=== PATIENT | male | born 1935 | race Caucasian/White ===

== ENCOUNTER → 2016-10-10 | Day surgery (SDC) | payer OTHER, BC ==
[2016-09-25 11:09] VITALS: BMI 34.0
[~2016-10-10] VITALS: Ht 170.2 cm; Wt 100.0 kg
[~2016-10-10] MED LIST: ASPI81TA28 PO; CALC600T9 PO; DOXA2TAB PO; GARL400T4 PO; LIDOCAINE HCL 2% 2 ML VIAL (20MG/ML) ONE; MULT-506 PO; NIAC500T7 PO; OMEG10007 PO; PROPOFOL IV EMULSION 10 MG/ML 20 ML VIAL IV ONE; SIMV20TA2 PO; SOTA120T16 PO; TIMO0.2534 OPB; [UNRECOGNIZED DRUG - CODE] PO
[2016-10-10 12:42] VITALS: Ht 170.2 cm; Wt 100.0 kg
[2016-10-10 12:54] VITALS: TEMP 36.9
--- NOTE | 2016-10-10 13:05 | Endo History and Physical ---
History & Physical Date of Service: Oct 10, 2016. Chief Complaint: HX OF COLON CA Referring Physician: DR. VIRGINIA VICTOR History of Present Illness For colonoscopy Past Medical History Atrial Fibrillation, Cancer, High Cholesterol, Hypertension Past Surgical History Hx Cardiac Surgery: Yes (CARDIOVERSION) Hx Internal Defibrillator: No Hx Pacemaker: No Hx Abdominal Surgery: Yes (HERNIA REPAIR) Hx of Implantable Prosthesis: No Hx Post-Op Nausea and Vomiting: No Hx Cancer Surgery: Yes (PARTIAL COLON RESECTION, MELANOMA REMOVALS) Hx Thoracic Surgery: No Hx Orthopedic: No Hx Urinary Tract Surgery: Yes (PROSTATE BIOPSY X2) Family History None Social History Smoking Status: Never Smoker Hx Substance Use: No Hx Alcohol Use: Yes (1 BEER/DAY) Allergies Coded Allergies: No Known Allergies (Verified , 09/25/16) Current Medications Reported Home Medications Medications Dose Route/Sig Max Daily Dose Days Date Category Cardura (Doxazosin Mesylate) 2 Mg Tab 1 Mg PO HS 09/25/16 Reported Niacin (Niacinamide) 500 Mg Tab 500 Mg PO QAM 04/20/15 Reported Garlic (Garlic-Calcium) 1 Tab Tab 1 Tab PO BID 04/20/15 Reported Multivitamin (Multivitamins) Tab 1 Tab PO QAM 04/20/15 Reported Calcium + D (Calcium Carbonate-Vitamin D) 1 Tab Tab 1 Tab PO BID 04/20/15 Reported [place]-3 (Fish Oil) 1 Ea Cap 1 Cap PO BID 04/20/15 Reported Aspirin Ec (Aspirin) 81 Mg Tab 81 Mg PO QAM 04/20/15 Reported Timoptic 0.5% Oph (Timolol Maleate) Soln 1 Drops OPB QAM 04/20/15 Reported Betapace (Sotalol Hcl) 120 Mg Tab 120 Mg PO BID 03/08/12 Reported Atacand Hct 16MG/12.5MG * (Candesartan Cilexetil/HCTZ) Tab 0.5 Tablet PO QAM 03/08/12 Reported Zocor (Simvastatin) 20 Mg Tab 20 Mg PO HS 02/04/11 Reported Vital Signs Weight (Kilograms): 100.00 Height (Feet): 5 Height (Inches): 7 Date Time Temp Pulse Resp B/P Pulse Ox O2 Delivery O2 Flow Rate FiO2 10/10/16 12:54 36.9 66 18 131/87 95 Room Air Physical Exam General Appearance: WD/WN Respiratory/Chest: Respiratory effort: no dyspnea Cardiovascular: Heart Auscultation: RRR Abdomen: Bowel Sounds: pertinent finding (scar) Inspection & Palpation: soft Assessment and Plan Hx colon cancer for colonoscopy
--- NOTE | 2016-10-10 13:25 | Discharge Instructions ---
Endoscopy Patient Instructions Date / Procedure(s) Performed Oct 10, 2016. Colonoscopy Allergy Information Coded Allergies: No Known Allergies (Verified , 09/25/16) Discharge Date / Findings Oct 10, 2016. Diverticulosis, hemorrhoids Medication Instructions Stopped Medication(s): vitamins and aspirin Restart Stopped Medication(s): resume meds Reported Home Medications Medications Dose Route/Sig Max Daily Dose Days Date Category Cardura (Doxazosin Mesylate) 2 Mg Tab 1 Mg PO HS 09/25/16 Reported Niacin (Niacinamide) 500 Mg Tab 500 Mg PO QAM 04/20/15 Reported Garlic (Garlic-Calcium) 1 Tab Tab 1 Tab PO BID 04/20/15 Reported Multivitamin (Multivitamins) Tab 1 Tab PO QAM 04/20/15 Reported Calcium + D (Calcium Carbonate-Vitamin D) 1 Tab Tab 1 Tab PO BID 04/20/15 Reported M[place]-3 (Fish Oil) 1 Ea Cap 1 Cap PO BID 04/20/15 Reported Aspirin Ec (Aspirin) 81 Mg Tab 81 Mg PO QAM 04/20/15 Reported Timoptic 0.5% Oph (Timolol Maleate) Soln 1 Drops OPB QAM 04/20/15 Reported Betapace (Sotalol Hcl) 120 Mg Tab 120 Mg PO BID 03/08/12 Reported Atacand Hct 16MG/12.5MG * (Candesartan Cilexetil/HCTZ) Tab 0.5 Tablet PO QAM 03/08/12 Reported Zocor (Simvastatin) 20 Mg Tab 20 Mg PO HS 02/04/11 Reported Provider Instructions Activity Restrictions - No exercising or heavy lifting for 24 hours. - Do not drink alcohol the day of the procedure. - Do not drive a car or operate machinery until the day after the procedure. - Do not make any important decisions or sign important papers in 24 hours after the procedure. Following Day: - Return to full activity which may include returning to work/school. Diet Start your diet with liquids and light foods (jello, soup, juice, toast). Then eat your usual diet if not nauseated. Treatment For Common After Affects For mild abdominal pain, bloating, or excessive gas: - Rest - Eat lightly - Lie on right side Follow-Up Information Follow-up with DR. VIRGINIA VICTOR as scheduled Anesthesia Information What You Should Know You have had a procedure that required some medicine to reduce anxiety and discomfort. This treatment is called moderate sedation. After receiving the treatment, you may be sleepy, but you will be able to breathe on your own. The effects of the treatment may last for several hours. Follow these instructions along with Activity/Diet recommendations noted above: * Do NOT do anything where dizziness or clumsiness would be dangerous. * Rest quietly at home today, then you can be up and about tomorrow. * Have a responsible person stay with you the rest of today. * You may have had an I.V. today. If so, you may take the dressing off later today. Recommendations Call your doctor if: * Trouble breathing * Continuous vomiting for more than 24 hours * Temperature above 101 degrees * Severe abdominal pain or bloating * Pain not relieved by pain medicine ordered * There is increased drainage or redness from any incision * A large amount of rectal bleeding greater than 2-3 tablespoons. (If you had a polyp/s removed or have hemorrhoids, a small amount of blood - from the rectum is to be expected.) * You have any unanswered questions or concerns. IN THE EVENT OF A SERIOUS EMERGENCY, GO TO THE NEAREST EMERGENCY ROOM Your discharge instructions were prepared by provider Ming Grullon. Patient Instructions Signature Page Roderick Ramirez Patient (or Guardian) Signature/Date: I have read and understand the instructions given to me by my caregivers. Caregiver/RN/Doctor Signature/Date: The above-named patient and/or guardian has received patient instructions on this date. + Original Patient Signature Page (only) stays with chart. Please make copy for patient.
--- NOTE | 2016-10-10 13:28 | GI REPORT ---
Procedure Date: 10/10/2016 1:07 PM Procedure: Colonoscopy Indications: Personal history of malignant neoplasm of the colon Medicines: Propofol total dose 150 mg IV, Lidocaine 40 mg IV Complications: No immediate complications. Estimated Blood Loss: Estimated blood loss: none. Procedure: Pre-Anesthesia Assessment: - Prior to the procedure, a History and Physical was performed, and patient medications, allergies and sensitivities were reviewed. The patient's tolerance of previous anesthesia was reviewed. - The risks and benefits of the procedure and the sedation options and risks were discussed with the patient. All questions were answered and informed consent was obtained. After I obtained informed consent, the scope was passed under direct vision. Throughout the procedure, the patient's blood pressure, pulse, and oxygen saturations were monitored continuously. The On-site loaner was introduced through the anus and advanced to the cecum, identified by appendiceal orifice and ileocecal valve. The colonoscopy was performed without difficulty. The patient tolerated the procedure well. The quality of the bowel preparation was good. Findings: There was evidence of a prior end-to-end colo-colonic anastomosis in the sigmoid colon. This was patent and was characterized by healthy appearing mucosa. The anastomosis was traversed. Non-bleeding internal hemorrhoids were found during endoscopy. The hemorrhoids were moderate. A few diverticula were found in the sigmoid colon. Impression: - Patent end-to-end colo-colonic anastomosis, characterized by healthy appearing mucosa. - Non-bleeding internal hemorrhoids. - Diverticulosis in the sigmoid colon. - No specimens collected. Recommendation: - Discharge patient to home (ambulatory). - Continue present medications. - Repeat colonoscopy in 5 years for surveillance. - Return to primary care physician PRN. Ming Grullon M.D. Ming Grullon MD 10/10/2016 1:28:32 PM This report has been signed electronically. Note Initiated On: 10/10/2016 1:07 PM I attest to the content of the Intraoperative Record and orders documented therein, exceptions below
[2016-10-10 14:00] VITALS: BP 165/89; PULSE 54; O2SAT 94
--- NOTE | 2016-10-10 14:13 | Anesthesiology Progress Note ---
Anesthesia Post Op Note Date & Time Oct 10, 2016 at 14:13 Vital Signs Pain Intensity: 0 Vital Signs Past 12 Hours Date Time Temp Pulse Resp B/P Pulse Ox O2 Delivery O2 Flow Rate FiO2 10/10/16 14:00 54 20 165/89 94 Room Air 10/10/16 13:45 58 20 153/85 96 Room Air 10/10/16 13:30 65 20 116/63 96 Room Air 10/10/16 12:54 36.9 66 18 131/87 95 Room Air Notes Mental Status: alert / awake / arousable, participated in evaluation Pt Amnestic to Procedure: Yes Nausea / Vomiting: adequately controlled Pain: adequately controlled Airway Patency, RR, SpO2: stable & adequate BP & HR: stable & adequate Hydration State: stable & adequate Anesthetic Complications: no major complications apparent
== END | disposition home or self-care (01) ==
LOC: C.GI 12:24
PROVIDERS: ATTEND Internal Medicine Gastroenterology
DX: Z85.038 Personal history of other malignant neoplasm of large intestine (principal); K57.30 Diverticulosis of large intestine without perforation or abscess without bleeding; K64.8 Other hemorrhoids; I48.91 Unspecified atrial fibrillation; Z98.0 Intestinal bypass and anastomosis status; I10 Essential (primary) hypertension; E78.00 Pure hypercholesterolemia, unspecified

== ENCOUNTER → 2017-10-06 | Outpatient (CLI) | payer OTHER, BC ==
[~2017-10-06] MED LIST changes: -LIDOCAINE HCL 2% 2 ML VIAL (20MG/ML) ONE; -PROPOFOL IV EMULSION 10 MG/ML 20 ML VIAL IV ONE
[2017-10-06 18:40] LABS: BLOOD UREA NITROGEN 21 mg/dl (7-18); CALCIUM 9.4 mg/dl (8.5-10.1); CARBON DIOXIDE 30 mmol/L (21-32); CREATININE 0.95 mg/dl (0.60-1.40); GLUCOSE 92 mg/dl (70-99); POTASSIUM 4.4 mmol/L (3.5-5.1); SODIUM 136 mmol/L (136-145)
[2017-10-07 06:40] LABS: HEMOGLOBIN A1C 6.1 % (4.5-5.6)
== END | disposition home or self-care (01) ==
LOC: C.LABPBG 11:23
PROVIDERS: ATTEND Urology
DX: E66.8 Other obesity (principal); E11.9 Type 2 diabetes mellitus without complications; R00.1 Bradycardia, unspecified; N40.1 Benign prostatic hyperplasia with lower urinary tract symptoms

== ENCOUNTER → 2017-10-29 | Outpatient (CLI) | payer OTHER, BC ==
[~2017-10-29] MED LIST changes: +GADAVIST IV PRN
--- NOTE | 2017-10-29 15:29 | DIAGNOSTIC IMAGING REPORT ---
PROSTATE MRI COMBO CLINICAL HISTORY: 82 years-old Male presenting with R97.20 Elevated prostate specific antigen (PSA)10/06/17 PSA (19.60. PSA ng/mL. TECHNIQUE: Multisequence, multiplanar MR imaging of the prostate was performed before and after the administration of intravenous contrast. Additional postprocessing was performed on a separate [employer] workstation by the radiologist for 3-D volumetric segmentation of the prostate and contouring of region(s) of interest (COY) for targeting. IV contrast: 10 cc intravenous Gadavist COMPARISON: None. FINDINGS: Prostate: The prostate measures 6.3 x 5.0 x 5.8 cm cm (DynaCAD prostate boundary segmentation volume 89 mL). Moderate changes of benign prostatic hyperplasia. Precontrast T1 weighted imaging demonstrates no evidence of intrinsic T1 hyperintensity to suggest hemorrhage. Suspicious lesion(s) described below: Lesion (DynaCAD COY) 1: Location: Left posterolateral peripheral zone at the mid gland. The lesion does not extend across the midline. Size: 18 mm (as measured on ADC for PZ lesion and T2WI for TZ lesion) T2W: 4. Circumscribed, homogeneous moderately hypointense lesion. The lesion has an extended interface with the overlying capsule, which increases the risk of microinvasion. No definite extraprostatic extension, seminal vesicles invasion, or neurovascular bundle involvement. DWI: 5. Focal markedly hypointense on ADC and markedly hyperintense on high b-value DWI. DCE: Positive. Focal enhancement corresponding to a suspicious finding, earlier or contemporaneous with adjacent normal tissue. PI-RADS: 5. Clinically significant cancer is highly likely to present. There is a second nodule located on the right in the posterior lateral peripheral zone at the mid gland level. This nodule measures 2 mm. The nodule is circumscribed and not visualized on T2-weighted images. The lesion demonstrates hypointensity on diffusion-weighted imaging and has a high B value. This is a PI-RADS 4 lesion. Seminal vesicles demonstrate nonspecific decreased T2 signal Bladder: Normal. Bowel: Visualized portion of the rectum normal. Peritoneum: No free fluid in the pelvis. Lymph nodes: No lymphadenopathy in the visualized portion of the pelvis. Vasculature: Iliac vessels patent. Abdominal wall: Normal. Osseous structures: Normal bone marrow signal intensity. IMPRESSION: 1. 18 mm mm lesion in the left peripheral zone at the mid gland. PI-RADS: 5. Clinically significant cancer is highly likely to present. This lesion has been segmented for targeted biopsy. 2. A 2 mm lesion in the right peripheral zone at the mid gland level was also segmented for targeted biopsy. 3. Benign prostatic hyperplasia. Electronically signed by: Ramiro Reaves M.D. 10/29/2017 3:28 PM Dictated Date/Time: 10/29/2017 3:02 PM
== END | disposition home or self-care (01) ==
LOC: C.MRIBC 13:11
PROVIDERS: ATTEND Urology
DX: R97.20 Elevated prostate specific antigen [PSA] (principal); N40.0 Benign prostatic hyperplasia without lower urinary tract symptoms

== ENCOUNTER 2018-10-31 04:37 | Inpatient (IN) ==
[2018-10-31] MEDS ORDERED: MoRPHine SULFATE 4 MG/ML 1 ML CARP\\VIAL IV STA (04:47)
[2018-10-31 05:30] LABS: Eosinophils # (auto) 0.01 K/uL (0-0.5); Eosinophils % (auto) 0.1 %; Hematocrit (blood only) 43.7 % (42-52); Hemoglobin 15.1 g/dL (14.0-18.0); Immature Granulocytes # (auto) 0.02 K/uL (0.00-0.02); Immature Granulocytes % (auto) 0.2 %; Lymphocytes # (auto) 1.29 K/uL (1.2-3.4); Lymphocytes % (auto) 11.9 %; Mean Corpuscular Hgb Conc 34.6 g/dL (32-36); Mean Corpuscular Volume 91.6 fL (80-100); Mean Platelet Volume 11.1 fL (7.4-10.4); Monocytes # (auto) 1.33 K/uL (0.11-0.59); Monocytes % (auto) 12.3 %; Neutrophils % (auto) 75.5 %; Platelet Count 150 K/uL (130-400); RDW Coefficient of Variation 13.9 % (11.5-14.5); RDW Standard Deviation 46.5 fL (36.4-46.3); Red Blood Count 4.77 M/uL (4.7-6.1); White Blood Count 10.85 K/uL (4.8-10.8)
[2018-10-31 05:40] LABS: Albumin Level 3.4 gm/dl (3.4-5.0); BUN Creatinine Ratio 15.6 (10-20); Est GFR (Non-African American) 28.5; Potassium 3.8 mmol/L (3.5-5.1)
[2018-10-31 05:42] LABS: Albumin Globulin Ratio 0.9 (0.9-2); Bilirubin,Total 0.8 mg/dl (0.2-1); Globulin 3.9 gm/dl (2.5-4.0); Total Protein 7.3 gm/dl (6.4-8.2)
[2018-10-31 05:51] LABS: Appearance Urine Clear (Clear); Color Urine Orange
[2018-10-31 05:52] LABS: Protein Urine Negative (Negative); Specific Gravity Urine 1.013 (1.000-1.060)
[2018-10-31 05:59] LABS: Bacteria Urine Negative (Negative); Epithelial Cell Urine 0-5 /lpf (0-5); RBC Urine >30 /hpf (0-4); WBC Urine 0-5 /hpf (0-5)
--- NOTE | 2018-10-31 06:42 | Emergency Department Note ---
History of Present Illness General Chief complaint: Hematuria Time Seen by Provider: 10/31/18 04:40 History of Present Illness Maximum Pain Intensity: 6 This is an 83-year-old male that presents to the emergency department status post Brachytherapy on 10/28 here in the hospital the presents to the emergency department with complaints of "hematuria". The patient notes that he was doing well until this past Thursday when he began noticing persistence of blood in the urine and now abdomen persistent. No bowel movement since Thursday evening. He notes that currently he has abdominal pain throughout the entire abdomen. He also notes he is urinating minimal amounts. He notes that the procedure was for prostate cancer. No fevers or chills. No chest pain or shortness of breath. Home Medications Home Medications Medication Instructions Recorded Confirmed Type Lupron Depot (4 month) 1 dose IM UD 10/12/18 10/31/18 History alfuzosin 10 mg PO QPM 10/12/18 10/31/18 History aspirin [Aspir-81] 81 mg PO QPM 10/12/18 10/31/18 History calcium carbonate-vitamin D3 1 tab PO BID 10/12/18 10/31/18 History [Calcium 500 + D] candesartan-hydrochlorothiazid 1 tab PO QAM 10/12/18 10/31/18 History [Atacand HCT] coQ10 (ubiquinol) 200 mg PO QPM 10/12/18 10/31/18 History doxazosin [Cardura] 1 mg PO QPM 10/12/18 10/31/18 History multivitamin 1 tab PO QAM 10/12/18 10/31/18 History omega 1-ceb-xbj-fish oil [Fish Oil] 1 cap PO BID 10/12/18 10/31/18 History simvastatin 20 mg PO HS 10/12/18 10/31/18 History sotalol 120 mg PO BID 10/12/18 10/31/18 History timolol maleate (PF) 1 drp OPHTHALMIC (EYE) QAM 10/12/18 10/31/18 History Allergies Allergy/AdvReac Type Severity Reaction Status Date / Time No Known Allergies Allergy Verified 10/31/18 04:54 Past Med/Surg History Medical History Atrial fibrillation HX, s/p chemical cardioversion; re-occurrence in 2001. Electrical cardioversion 2010. Cancer PROSTATE CURRENTLY Diabetes mellitus, type 2 BORDERLINE-NO MEDS Glaucoma Hyperlipidemia Hypertension Tricuspid regurgitation "PAST 25 YRS", no murmur on exam Surgical History History of bowel resection FOR COLON CANCER History of cardioversion Electrical, 2010 History of herniorrhaphy SPIGELIAN HERNIA Melanoma EXCISION MULTIPLE TIMES-SHOULDER/EAR/BACK Social History Communication Ability: Effective Beliefs That Will Affect Care: None Current Living Situation: Significant Other Other Information That Helps Us Care for You: No Feels Safe at Home: Yes Safety Concerns: Feels Safe At This Time Smoking Status: Former smoker Hx Alcohol Use: Yes Hx Substance Use: No Review of Systems A total of 10 systems reviewed and were otherwise negative Physical Exam Vital Signs Vital Signs - 24 hr 10/31/18 04:43 10/31/18 04:47 10/31/18 06:06 Temperature 37.5 C Temperature Source Oral Sepsis Recent Fever Within 48 Hours No Sepsis New/Unexplained Change in Mental Status No Sepsis Action Taken by Nursing No Action Required Pulse Rate 59 L Pulse Rate [Right Finger] 55 L Pulse Rhythm [Right Finger] Pulse Strength Normal Pulse Strength [Right Finger] Respiratory Rate 16 16 Respiratory Effort / Characteristics Non-Labored Non-Labored Spontaneous Respiratory Depth Normal Normal Respiratory Pattern Regular Regular Blood Pressure 128/73 Blood Pressure [Left Arm] Blood Pressure [Right Arm] 131/74 Blood Pressure Mean 91 Blood Pressure Mean [Left Arm] Blood Pressure Mean [Right Arm] 93 Blood Pressure Position Lying Blood Pressure Position [Left Arm] Blood Pressure Position [Right Arm] Lying Pulse Oximetry 92 95 94 Oxygen Delivery Method Room Air Room Air Room Air 10/31/18 07:27 10/31/18 08:19 10/31/18 08:43 Temperature 36.8 C Temperature Source Oral Sepsis Recent Fever Within 48 Hours Sepsis New/Unexplained Change in Mental Status Sepsis Action Taken by Nursing Pulse Rate 58 L Pulse Rate [Right Finger] 58 L 58 L Pulse Rhythm [Right Finger] Regular Pulse Strength Pulse Strength [Right Finger] Normal Respiratory Rate 18 20 18 Respiratory Effort / Characteristics Non-Labored Spontaneous Respiratory Depth Normal Respiratory Pattern Blood Pressure 140/77 Blood Pressure [Left Arm] 138/75 Blood Pressure [Right Arm] 161/83 H Blood Pressure Mean Blood Pressure Mean [Left Arm] 96 Blood Pressure Mean [Right Arm] 109 Blood Pressure Position Blood Pressure Position [Left Arm] Lying Blood Pressure Position [Right Arm] Pulse Oximetry 95 95 Oxygen Delivery Method Room Air Room Air 10/31/18 16:00 10/31/18 20:14 Temperature 37.0 C Temperature Source Oral Sepsis Recent Fever Within 48 Hours Sepsis New/Unexplained Change in Mental Status Sepsis Action Taken by Nursing Pulse Rate Pulse Rate [Right Finger] 62 71 Pulse Rhythm [Right Finger] Pulse Strength Pulse Strength [Right Finger] Respiratory Rate 18 Respiratory Effort / Characteristics Respiratory Depth Respiratory Pattern Blood Pressure Blood Pressure [Left Arm] 119/75 Blood Pressure [Right Arm] 93/60 L Blood Pressure Mean Blood Pressure Mean [Left Arm] 89 Blood Pressure Mean [Right Arm] 71 Blood Pressure Position Blood Pressure Position [Left Arm] Blood Pressure Position [Right Arm] Lying Pulse Oximetry 93 Oxygen Delivery Method Room Air VITAL SIGNS - Vital signs and nursing notes were reviewed. Stable and borderline febrile. GENERAL - 83-year-old male appearing his stated age who is in no acute distress. Communicates well with provider and answers questions appropriately. SKIN - Without rashes. No meningeal or petechial rash. HEAD - NC/AT. EYES - PERRL with EOMI bilaterally. Sclera anicteric. EARS - No deformities of external structures noted on gross examination bilaterally. NOSE - Midline and without cyanosis. No epistaxis or purulent drainage noted. MOUTH/OROPHARYNX - Without perioral cyanosis. NECK - Neck with FROM. LUNGS - Chest wall symmetric without accessory muscle use, intercostals retractions, or central cyanosis. Normal vesicular breath sounds CTA B/L. No wheezes, rales, or rhonchi appreciated. CARDIAC - RRR with S1/S2. No murmur, rubs, or gallops appreciated. ABDOMEN - Abdominal contour normal without pulsations or visible masses. BS normoactive all four quadrants. Generalized tenderness noted. Soft and nonrigid. EXTREMITIES - No clubbing or peripheral cyanosis. No pretibial edema present. +5/5 strength noted in UE/LE bilaterally. NEUROLOGIC - Cranial nerves II through XII grossly intact. Sensory intact to light touch throughout. PSYCH - A&O and cooperates fully with examiner. Pt is very pleasant and interacts well with examiner. Course Administered Medications Alfuzosin HCl (Uroxatral) 10 mg PO QPM BETO Stop: 11/30/18 20:59 Last Admin: 10/31/18 20:11 Dose: 10 mg Documented by: [id number] Doxazosin Mesylate (Cardura) 1 mg PO QPM BETO Stop: 11/30/18 20:59 Last Admin: 10/31/18 20:11 Dose: 1 mg Documented by: [id number] Heparin Sodium (Porcine) (Heparin Sodium (Porcine)) 5,000 units SQ Q8 BETO Stop: 11/30/18 13:59 Last Admin: 10/31/18 20:07 Dose: 5,000 units Documented by: [id number] Cosigned by: [id number] Admin: 10/31/18 14:10 Dose: 5,000 units Documented by: [id number] Cosigned by: [id number] Multivitamins/Minerals (Caltrate Plus) 1 tab PO BID BETO Stop: 11/30/18 08:59 Last Admin: 10/31/18 20:11 Dose: 1 tab Documented by: [id number] Admin: 10/31/18 09:34 Dose: 1 tab Documented by: [id number] Simvastatin (Zocor) 20 mg PO HS BETO Stop: 11/30/18 20:59 Last Admin: 10/31/18 20:11 Dose: 20 mg Documented by: [id number] Sotalol HCl (Betapace) 120 mg PO BID BETO Stop: 11/30/18 08:59 Last Admin: 10/31/18 20:11 Dose: 120 mg Documented by: [id number] Admin: 10/31/18 09:34 Dose: 120 mg Documented by: [id number] Timolol Maleate (Timoptic 0.5% Oph) 1 drops OP QAM BETO Stop: 11/30/18 08:59 Last Admin: 10/31/18 09:35 Dose: 1 drops Documented by: [id number] Discontinued Medications Morphine Sulfate (Morphine Sulfate) 4 mg IV NOW STA Stop: 10/31/18 04:48 Last Admin: 10/31/18 05:09 Dose: 4 mg Documented by: [id number] Medical Decision Making Laboratory Data Result diagrams: 10/31/18 05:00 10/31/18 05:00 Lab Results 10/31/18 10/31/18 10/31/18 Range/Units 05:00 05:00 05:00 WBC 10.85 H (4.8-10.8) K/uL RBC 4.77 (4.7-6.1) M/uL Hgb 15.1 (14.0-18.0) g/dL Hct 43.7 (42-52) % MCV 91.6 (80-100) fL MCH 31.7 (25-34) pg MCHC 34.6 (32-36) g/dL RDW Std Deviation 46.5 H (36.4-46.3) fL RDW Coeff of Eliza 13.9 (11.5-14.5) % Plt Count 150 (130-400) K/uL MPV 11.1 H (7.4-10.4) fL Immature Gran % (Auto) 0.2 % Neut % (Auto) 75.5 % Lymph % (Auto) 11.9 % [place] % (Auto) 12.3 % Eos % (Auto) 0.1 % Baso % (Auto) 0.0 % Immature Gran # (Auto) 0.02 (0.00-0.02) K/uL Neut # (Auto) 8.20 H (1.4-6.5) K/uL Lymph # (Auto) 1.29 (1.2-3.4) K/uL [place] # (Auto) 1.33 H (0.11-0.59) K/uL Eos # (Auto) 0.01 (0-0.5) K/uL Baso # (Auto) 0.00 (0-0.2) K/uL APTT (21.0-31.0) Seconds PTT Ratio Sodium 135 L (136-145) mmol/L Potassium 3.8 (3.5-5.1) mmol/L Chloride 97 L (98-107) mmol/L Carbon Dioxide 29 (21-32) mmol/L Anion Gap 9.0 (3-11) BUN 33 H (7-18) mg/dl Creatinine 2.11 H (0.6-1.4) mg/dl Est Cr Clr Drug Dosing 33.0 ml/min Est GFR ( Amer) 33.0 Est GFR (Non-Af Amer) 28.5 BUN/Creatinine Ratio 15.6 (10-20) Glucose 137 H (70-99) mg/dl Calcium 9.0 (8.5-10.1) mg/dl Total Bilirubin 0.8 (0.2-1) mg/dl AST 18 (15-37) U/L ALT 27 (12-78) U/L Alkaline Phosphatase 53 (45-117) U/L Total Protein 7.3 (6.4-8.2) gm/dl Albumin 3.4 (3.4-5.0) gm/dl Globulin 3.9 (2.5-4.0) gm/dl Albumin/Globulin Ratio 0.9 (0.9-2) Lipase 41 L (73-393) U/L Urine Color [place] Urine Appearance Clear (Clear) Urine pH (4.5-7.5) Ur Specific [place] 1.013 (1.000-1.060) Urine Protein Negative (Negative) Urine Glucose (UA) (Negative) Urine Ketones (Negative) Urine Blood (Negative) Urine Nitrite (Negative) Urine Bilirubin (Negative) Urine Urobilinogen (Negative) Ur Leukocyte Esterase (Negative) Urine RBC >30 H (0-4) /hpf Urine WBC 0-5 (0-5) /hpf Ur Epithelial Cells 0-5 (0-5) /lpf Urine Bacteria Negative (Negative) 10/31/18 Range/Units 08:00 WBC (4.8-10.8) K/uL RBC (4.7-6.1) M/uL Hgb (14.0-18.0) g/dL Hct (42-52) % MCV (80-100) fL MCH (25-34) pg MCHC (32-36) g/dL RDW Std Deviation (36.4-46.3) fL RDW Coeff of Eliza (11.5-14.5) % Plt Count (130-400) K/uL MPV (7.4-10.4) fL Immature Gran % (Auto) % Neut % (Auto) % Lymph % (Auto) % [place] % (Auto) % Eos % (Auto) % Baso % (Auto) % Immature Gran # (Auto) (0.00-0.02) K/uL Neut # (Auto) (1.4-6.5) K/uL Lymph # (Auto) (1.2-3.4) K/uL [place] # (Auto) (0.11-0.59) K/uL Eos # (Auto) (0-0.5) K/uL Baso # (Auto) (0-0.2) K/uL APTT 24.5 (21.0-31.0) Seconds PTT Ratio 0.9 Sodium (136-145) mmol/L Potassium (3.5-5.1) mmol/L Chloride (98-107) mmol/L Carbon Dioxide (21-32) mmol/L Anion Gap (3-11) BUN (7-18) mg/dl Creatinine (0.6-1.4) mg/dl Est Cr Clr Drug Dosing ml/min Est GFR ( Amer) Est GFR (Non-Af Amer) BUN/Creatinine Ratio (10-20) Glucose (70-99) mg/dl Calcium (8.5-10.1) mg/dl Total Bilirubin (0.2-1) mg/dl AST (15-37) U/L ALT (12-78) U/L Alkaline Phosphatase (45-117) U/L Total Protein (6.4-8.2) gm/dl Albumin (3.4-5.0) gm/dl Globulin (2.5-4.0) gm/dl Albumin/Globulin Ratio (0.9-2) Lipase (73-393) U/L Urine Color Urine Appearance (Clear) Urine pH (4.5-7.5) Ur Specific [place] (1.000-1.060) Urine Protein (Negative) Urine Glucose (UA) (Negative) Urine Ketones (Negative) Urine Blood (Negative) Urine Nitrite (Negative) Urine Bilirubin (Negative) Urine Urobilinogen (Negative) Ur Leukocyte Esterase (Negative) Urine RBC (0-4) /hpf Urine WBC (0-5) /hpf Ur Epithelial Cells (0-5) /lpf Urine Bacteria (Negative) Imaging Data Radiologist's Impression: CT ABDOMEN & PELVIS Without Contrast: 03/08/2012 Normal small appendix in the right lower quadrant. No free air, free fluid. No bowel obstruction. Moderate bilateral perinephric stranding and fluid in the right posterior pararenal space tracking into the pelvis. Findings may represent infectious or inflammatory process. No obvious obstructing lesion visualized. Also consider bladder outlet obstruction. Bladder is moderately distended. Radiation seeds are noted, new since the prior. Fluid extends around the duodenum and may be due to retroperitoneal /renal abnormalities versus duodenitis Duodenal diverticulum. Small hiatal hernia. Liver low-density lesions. Distended gallbladder. No obvious wall thickening or surrounding inflammatory changes. No stones visualized. Radiologist: Mendy Kwon M.D. Study ready at 06:27 and initial results transmitted at 07:00 MDM Narrative Patient was seen and evaluated as above in room B2. Review was performed of nursing notes and vital signs. After obtaining a thorough history and physical examination the above work up was performed. He presents to us today with hematuria, abdominal pain and suspected urinary retention. He is nontoxic on exam. IV access was established. Labs were drawn. CBC reveals slight leukocytosis of 10.5, no anemia. Metabolic panel does reveal interval creatinine elevation at 2.11 and BUN at 33. This is more than double his previous. Urinalysis reveals greater than 30 red blood cells. Remainder is uninterpretable secondary to color. I discussed these findings with the attending physician and a CT scan was obtained. Results as above. I then discussed these with Dr. Tyler of urology. Even despite multiple urinations here, patient's bladder currently has over 600 cc of urine. Barnard catheter will be placed. Patient will be admitted to medicine, and urology will be consulted. Please refer to further documentation regarding his stay. Case was discussed with the attending physician. In the evaluation and treatment of this patient the following differential diagnoses were entertained: UTI, urinary retention, obstruction, postoperative infection, among others. Impression & Plan Abdominal pain, Acute urinary retention, Hematuria, Post-operative state Discharge Plan Visit Data *Final* Discharge Date/Time: 10/31/18 08:19 Chief Complaint: Hematuria ED Provider: Sarah Soto ED Midlevel Provider: Jon Gonzalez Discharge Problem: Abdominal pain, Acute urinary retention, Hematuria, Post-operative state Patient Disposition: Admitted As Inpatient Condition: Good Discharge Instructions Interventions: ED Discharge Assessment Last Done: 10/31/18 08:19
[2018-10-31] MEDS ORDERED: ACETAMINOPHEN 325 MG TAB PO PRN (08:41)
[2018-10-31] MEDS: SOTALOL HCL 80 MG TAB PO SCH ×2 (09:34→20:11)
[2018-10-31] MEDS: CALCIUM 600MG + VIT D 400 IU TAB PO SCH ×2 (09:34→20:11)
--- NOTE | 2018-10-31 09:34 | CT Scan Report ---
ABDOMEN AND PELVIS CT WITHOUT CONTRAST CT DOSE: 1649.42 mGy.cm HISTORY: Acute abdominal pain with recent prostate surgery abd pain, recent prostate surgery TECHNIQUE: Multiaxial CT images of the abdomen and pelvis were performed without contrast. A dose lo wering technique was utilized adhering to the principles of ALARA. COMPARISON STUDY: CT of the pelvis 09/30/2018 FINDINGS: Subsegmental bibasilar atelectasis/scarring. The lung bases otherwise appear clear. There is no pneum atosis or pneumoperitoneum identified. The imaged inferior cardiac chambers appear unremarkable with coronary arterial calcifications noted. Lobular circumscribed 1.9 cm lesion of the hepatic dome is noted in addition to multiple additional h ypodense lesions, not completely characterized on this study, however suggestive of probable hepatic cysts. Liver is otherwise unremarkable. Mild gallbladder distention without cholelithiasis identified . The spleen, and adrenal glands are unremarkable. There are a few scattered punctate calcifications noted throughout the pancreas which is otherwise unremarkable. Sinus cysts noted about the left kidney. Suggestion of a punctate nonobstructing interpolar left kidn ey calculus. Suggested cyst of the superior pole left kidney, 1.5 cm. Mild to moderate bilateral hydr oureteronephrosis with moderate perinephric and perirenal inflammation. Edema tracks into the posteri or pararenal spaces bilaterally, right greater than left tracking into the pelvis. Urinary bladder di stention measures up to 16.7 cm in length. Prostamegaly with brachytherapy seeds. Small right and sma to-[id number] left fat filled inguinal hernias. 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 Mildly prominent 7 mm left external iliac chain lymph node, indeterminate. Small sliding-type hiatal hernia with mild wall thickening about the distal esophagus. Moderate sized duodenal diverticulum, 4.6 cm transversely. Mild wall thickening of the duodenum with adjacent free fluid. Colonic diverticulosis without acute diverticulitis. No small bowel obstruction. Appendix not definitively seen. Soft tissues are unremarkable. Bones appear to be intact. There are no suspicious lytic or blastic bony lesions. IMPRESSION: 1. Prostamegaly with brachytherapy seeds of the prostate. 2. Distended urinary bladder with mild to moderate bilateral hydroureteronephrosis, perinephric, para renal and periureteral inflammation is noted suggestive of bladder outlet obstruction. Correlate clin ically. 3. Mild wall thickening with trace fluid about the duodenum and duodenal diverticulum which may be re active or reflect a nonspecific duodenitis. 4. Colonic diverticulosis without acute diverticulitis. 5. Small sliding-type hiatal hernia. 6. Additional findings as above. Electronically signed by: Caden Bejarano M.D. 10/31/2018 9:33 AM
[2018-10-31] MEDS: TIMOLOL MALEATE 0.5% OP SOLN 5 ML BTL OP SCH (09:35)
--- NOTE | 2018-10-31 10:07 | History & Physical Report ---
Date of Service October 31, 2018 Assessment & Plan (1) Acute urinary retention: Likely related to prostate inflammation s/p recent procedure. Cont Cardura and alfuzosin. Urology consulted. Barnard in place. No infection (2) Hematuria: s/p procedure to prostate last week. Barnard as above (3) Prostate cancer: Brachytherapy with recent seed placement. (4) PAF (paroxysmal atrial fibrillation): Sees Dr. Rodriguez [id number]. Stable and in sinus rhythm on sotalol. As his h/o afib is remote, he is not on anticoagulation for stroke prophylaxis. (5) T2DM (type 2 diabetes mellitus): Diet controlled, A1C in am. Cont ADA diet but hold off on fingersticks at this time. (6) Constipation: Miralax PRN, Dulcolax PRN . Encouraged to ambulate. (7) DVT prophylaxis: Heparin in setting of malignancy. Ambulate. Full Code as discussed with patient today. Dispo-admit to med/surg floor. Await Urology recommendations Neeru Mathias DO [facility] Hospitalist History of Present Illness Primary Care Provider: Shanelle Jack 83-year-old man with prostate cancer status post brachii therapy with seed placement on 10/28 presents to the emergency department with reports of gross hematuria and abdominal discomfort for 2 days. Review of systems also reveals some constipation. He denies any fevers, chills, chest pain, shortness of breath, headache, or other symptoms at this time. He reports that Thursday night he developed discomfort and the need to frequently urinate small amounts every 10 minutes. He is abdominal pain increased throughout yesterday and became associated with blood in the urine, prompting ER visit. In the ER he was found to be retaining >600cc of urine and a Barnard was placed with resolution of discomfort. Barnard is draining pink-tinged urine. Allergies Allergy/AdvReac Type Severity Reaction Status Date / Time No Known Allergies Allergy Verified 10/31/18 04:54 Home Medications Home Medications Medication Instructions Recorded Confirmed Type Lupron Depot (4 month) 1 dose IM UD 10/12/18 10/31/18 History alfuzosin 10 mg PO QPM 10/12/18 10/31/18 History aspirin [Aspir-81] 81 mg PO QPM 10/12/18 10/31/18 History calcium carbonate-vitamin D3 1 tab PO BID 10/12/18 10/31/18 History [Calcium 500 + D] candesartan-hydrochlorothiazid 1 tab PO QAM 10/12/18 10/31/18 History [Atacand HCT] coQ10 (ubiquinol) 200 mg PO QPM 10/12/18 10/31/18 History doxazosin [Cardura] 1 mg PO QPM 10/12/18 10/31/18 History multivitamin 1 tab PO QAM 10/12/18 10/31/18 History omega 9-xhd-cjt-fish oil [Fish Oil] 1 cap PO BID 10/12/18 10/31/18 History simvastatin 20 mg PO HS 10/12/18 10/31/18 History sotalol 120 mg PO BID 10/12/18 10/31/18 History timolol maleate (PF) 1 drp OPHTHALMIC (EYE) QAM 10/12/18 10/31/18 History Past Med/Surg History Medical History Atrial fibrillation HX, s/p chemical cardioversion; re-occurrence in 2001. Electrical cardioversion 2010. Cancer PROSTATE CURRENTLY Diabetes mellitus, type 2 BORDERLINE-NO MEDS Glaucoma Hyperlipidemia Hypertension Tricuspid regurgitation "PAST 25 YRS", no murmur on exam Surgical History History of bowel resection FOR COLON CANCER History of cardioversion Electrical, 2010 History of herniorrhaphy SPIGELIAN HERNIA Melanoma EXCISION MULTIPLE TIMES-SHOULDER/EAR/BACK Social History Preferred Language: Serbian Communication Ability: Effective Formulation Chemist Required: No Beliefs That Will Affect Care: None Current Living Situation: Significant Other Other Information That Helps Us Care for You: No Feels Safe at Home: Yes Safety Concerns: Feels Safe At This Time Smoking Status: Former smoker Hx Alcohol Use: Yes Hx Substance Use: No Review of Systems At least 10 systems were reviewed and negative except as indicated in HPI above. Physical Exam Vital Signs (Past 24 Hours): Last Vital Signs Temp 36.8 C 10/31/18 08:43 Pulse 58 L 10/31/18 08:43 Resp 18 10/31/18 08:43 BP 138/75 10/31/18 08:43 Pulse Ox 95 10/31/18 08:19 CONSTITUTIONAL: WNWD, vitals as above, generally well-appearing EYES: normal conjuctivae, no scleral icterus RESPIRATORY: clear to auscultation bilaterally, no crackles, rales or wheezes, normal respiratory effort CARDIOVASCULAR: regular rate and rhythm, S1 and 2 heard without murmurs, gallops or rubs, no JVD, no peripheral edema GASTROINTESTINAL: soft, nontender, nondistended, no CVA tenderness MUSCULOSKELETAL: strength 5/5 throughout, head is normocephalic and atraumatic, no focal deficits. SKIN: warm and dry NEUROLOGIC: CN 2-12 grossly intact, normal cognition, normal speech, no tremor PSYCHIATRIC: alert cooperative and oriented to person, place and time. Results & Data Laboratory Results Short CBC 10/31/18 Range/Units 05:00 WBC 10.85 H (4.8-10.8) K/uL Hgb 15.1 (14.0-18.0) g/dL Hct 43.7 (42-52) % Plt Count 150 (130-400) K/uL BMP 10/31/18 05:00 Sodium 135 L Potassium 3.8 Chloride 97 L Carbon Dioxide 29 BUN 33 H Creatinine 2.11 H Glucose 137 H Calcium 9.0 Liver Function 10/31/18 Range/Units 05:00 Total Bilirubin 0.8 (0.2-1) mg/dl AST 18 (15-37) U/L ALT 27 (12-78) U/L Alkaline Phosphatase 53 (45-117) U/L Albumin 3.4 (3.4-5.0) gm/dl Urine 10/31/18 Range/Units 05:00 Urine Color [place] Urine Appearance Clear (Clear) Urine pH (4.5-7.5) Ur Specific [place] 1.013 (1.000-1.060) Urine Protein Negative (Negative) Urine Glucose (UA) (Negative) Diagnostic Findings A/P CT: IMPRESSION: 1. Prostamegaly with brachytherapy seeds of the prostate. 2. Distended urinary bladder with mild to moderate bilateral hydroureteronephrosis, perinephric, pararenal and periureteral inflammation is noted suggestive of bladder outlet obstruction. Correlate clinically. 3. Mild wall thickening with trace fluid about the duodenum and duodenal diverticulum which may be reactive or reflect a nonspecific duodenitis. 4. Colonic diverticulosis without acute diverticulitis. 5. Small sliding-type hiatal hernia. 6. Additional findings as above. Medications Administered Current Inpatient Medications Acetaminophen (Tylenol) 650 mg PO Q4H PRN PRN Reason: pain/fever Stop: 11/30/18 08:40 Alfuzosin HCl (Uroxatral) 10 mg PO QPM [facility] Stop: 11/30/18 20:59 Doxazosin Mesylate (Cardura) 1 mg PO QPM BETO Stop: 11/30/18 20:59 Heparin Sodium (Porcine) (Heparin Sodium (Porcine)) 5,000 units SQ Q8 [facility] Stop: 11/30/18 13:59 Multivitamins/Minerals (Caltrate Plus) 1 tab PO BID [facility] Stop: 11/30/18 08:59 Last Admin: 10/31/18 09:34 Dose: 1 tab Documented by: Simvastatin (Zocor) 20 mg PO HS [facility] Stop: 11/30/18 20:59 Sotalol HCl (Betapace) 120 mg PO BID [facility] Stop: 11/30/18 08:59 Last Admin: 10/31/18 09:34 Dose: 120 mg Documented by: Timolol Maleate (Timoptic 0.5% Oph) 1 drops OP QAM [facility] Stop: 11/30/18 08:59 Last Admin: 10/31/18 09:35 Dose: 1 drops Documented by: Code Status & VTE Plan Code Status Full VTE Prophylaxis Plan VTE Prophylaxis will be ordered: Yes Critical Care Time Critical Care Time: No
[2018-10-31] MEDS ORDERED: POLYETHYLENE (MIRALAX) 17 GM PACK PO PRN (10:29)
[2018-10-31] MEDS ORDERED: BISACODYL 10 MG SUPP PR PRN (10:29)
[2018-10-31 11:04] LABS: Partial Thromboplastin Ratio 0.9; Partial Thromboplastin Time 24.5 Seconds (21.0-31.0)
[2018-10-31] MEDS: HEPARIN SOD 5,000 UNIT/0.5 ML VIAL SQ SCH ×2 (14:10→20:07)
--- NOTE | 2018-10-31 14:28 | Urology Consultation ---
Date of Consultation October 31, 2018 Assessment & Plan (1) Acute urinary retention: Likely secondary to procedure and underlying BPH with LUTS. On meds. patient improved drastically with catheter. Will likley need for 3-7 days depending on how improves over next 48 hours. Increase activity. may need some antibiotics as precaution. Will monitor. (2) Hematuria: s/p procedure to prostate last week. Barnard as above (3) Prostate cancer: Brachytherapy with recent seed placement. History of Present Illness Attending Physician: Neeru Mathias DO History of Present Illness PResented in ER with hematuria, urinary urgency, incomplete emptying. Retention foudn on imaging. Patient had recently had procedure for prostate cancer. Imaging also showed possible pyelo. Severe disomfort in waves in pelvis with urgency and LUTS and severe bother. Patient had heamturia. Catheter drastically improved. Tolerating well. Urine now light pink and clearing without clots. Allergies Allergy/AdvReac Type Severity Reaction Status Date / Time No Known Allergies Allergy Verified 10/31/18 04:54 Home Medications Home Medications Medication Instructions Recorded Confirmed Type Lupron Depot (4 month) 1 dose IM UD 10/12/18 10/31/18 History alfuzosin 10 mg PO QPM 10/12/18 10/31/18 History aspirin [Aspir-81] 81 mg PO QPM 10/12/18 10/31/18 History calcium carbonate-vitamin D3 1 tab PO BID 10/12/18 10/31/18 History [Calcium 500 + D] candesartan-hydrochlorothiazid 1 tab PO QAM 10/12/18 10/31/18 History [Atacand HCT] coQ10 (ubiquinol) 200 mg PO QPM 10/12/18 10/31/18 History doxazosin [Cardura] 1 mg PO QPM 10/12/18 10/31/18 History multivitamin 1 tab PO QAM 10/12/18 10/31/18 History omega 6-ypt-yyt-fish oil [Fish Oil] 1 cap PO BID 10/12/18 10/31/18 History simvastatin 20 mg PO HS 10/12/18 10/31/18 History sotalol 120 mg PO BID 10/12/18 10/31/18 History timolol maleate (PF) 1 drp OPHTHALMIC (EYE) QAM 02/12/19 03/03/19 History Patient History Medical History Atrial fibrillation HX, s/p chemical cardioversion; re-occurrence in 2001. Electrical cardioversion 2010. Cancer PROSTATE CURRENTLY Diabetes mellitus, type 2 BORDERLINE-NO MEDS Glaucoma Hyperlipidemia Hypertension Tricuspid regurgitation "PAST 25 YRS", no murmur on exam Surgical History History of bowel resection FOR COLON CANCER History of cardioversion Electrical, 2010 History of herniorrhaphy SPIGELIAN HERNIA Melanoma EXCISION MULTIPLE TIMES-SHOULDER/EAR/BACK Social History Communication Ability: Effective Beliefs That Will Affect Care: None Current Living Situation: Significant Other Other Information That Helps Us Care for You: No Feels Safe at Home: Yes Safety Concerns: Feels Safe At This Time Smoking Status: Former smoker Hx Alcohol Use: Yes Hx Substance Use: No Review of Systems All reviewed. See HPI Physical Exam Vital Signs (Past 24 Hours): Last Vital Signs Temp 36.8 C 10/31/18 08:43 Pulse 58 L 10/31/18 08:43 Resp 18 10/31/18 08:43 BP 138/75 10/31/18 08:43 Pulse Ox 95 10/31/18 08:19 Constitutional: WD/WN, vitals as above well developed and well nourished Eyes: eyes not dysmorphic ENMT: Ears: + hearing impairment; no external ear abnormality Nose: no external nose abnormality Neck: trachea midline; no tracheal deviation Respiratory: normal respiratory effort; no respiratory distress and does not use accessory muscles Cardiovascular: Rate/Rhythm: not tachycardic Gastrointestinal (Abdomen): Percussion/Palpation: abdomen nontender, no guarding and abdomen not rigid Musculoskeletal: Head/Neck/Chest: + head abnormal to inspection and normocephalic Extremities: extremities normal to inspection Skin: no rashes and no jaundice Neurologic: CN's II-XI intact bilaterally Speech / Cognition: normal speech Motor/Sensory: no tremor Psychiatric: Mood: no depressed mood and no anxious mood Genitourinary: no CVA tenderness Lymphatic: no lymphadenopathy
[2018-10-31] MEDS ORDERED: ALFUZOSIN HCL 10 MG TAB PO SCH (21:00)
[2018-10-31] MEDS ORDERED: SIMVASTATIN 20 MG TAB PO SCH (21:00)
[2018-10-31] MEDS ORDERED: DOXAZOSIN MESYLATE 1 MG TAB PO SCH (21:00)
[2018-11-01] MEDS: HEPARIN SOD 5,000 UNIT/0.5 ML VIAL SQ SCH (05:47)
[2018-11-01 07:28] LABS: Hematocrit (blood only) 39.9 % (42-52); Hemoglobin 13.6 g/dL (14.0-18.0); Mean Corpuscular Hgb Conc 34.1 g/dL (32-36); Mean Corpuscular Volume 92.8 fL (80-100); Mean Platelet Volume 11.3 fL (7.4-10.4); Platelet Count 129 K/uL (130-400); RDW Coefficient of Variation 14.2 % (11.5-14.5); White Blood Count 8.21 K/uL (4.8-10.8)
[2018-11-01 08:11] LABS: BUN Creatinine Ratio 29.1 (10-20); Calcium 8.6 mg/dl (8.5-10.1); Creatinine Clr Calc Pharmacy 55.4 ml/min; Est GFR (African American) 63.4; Est GFR (Non-African American) 54.7; Potassium 3.5 mmol/L (3.5-5.1)
--- NOTE | 2018-11-01 08:17 | Hospitalist Progress Note ---
Date of Service November 01, 2018 Assessment & Plan (1) Acute urinary retention: Likely related to prostate inflammation s/p recent procedure. Cont Cardura and alfuzosin. Urology consulted. Barnard in place. No infection (2) Hematuria: s/p procedure to prostate last week. Barnard as above (3) Prostate cancer: Brachytherapy with recent seed placement. (4) PAF (paroxysmal atrial fibrillation): Sees Dr. Rodriguez [id number]. Stable and in sinus rhythm on sotalol. As his h/o afib is remote, he is not on anticoagulation for stroke prophylaxis. (5) T2DM (type 2 diabetes mellitus): Diet controlled, A1C in am. Cont ADA diet but hold off on fingersticks at this time. (6) Constipation: Miralax PRN, Dulcolax PRN . Encouraged to ambulate. (7) DVT prophylaxis: Heparin in setting of malignancy. Ambulate. Full Code as discussed with patient today. Dispo-admit to med/surg floor. Await Urology recommendations Neeru Mathias DO [facility] Hospitalist (8) EVELYNE (acute kidney injury): Physical Exam Vital Signs (Past 24 Hours): Last Vital Signs Temp 37.1 C 11/01/18 08:10 Pulse 68 11/01/18 08:10 Resp 16 11/01/18 08:10 BP 108/70 11/01/18 08:10 Pulse Ox 91 11/01/18 08:10 Results & Data Laboratory Results Short CBC 10/31/18 11/01/18 Range/Units 05:00 06:43 WBC 8.21 (4.8-10.8) K/uL Hgb 13.6 L (14.0-18.0) g/dL Hct 39.9 L (42-52) % Plt Count 129 L (130-400) K/uL Urine pH (4.5-7.5) BMP 11/01/18 06:43 Sodium 137 Potassium 3.5 Chloride 100 Carbon Dioxide 32 BUN 36 H Creatinine 1.23 D Glucose 101 H Calcium 8.6 Medications Administered Current Inpatient Medications Acetaminophen (Tylenol) 650 mg PO Q4H PRN PRN Reason: pain/fever Stop: 11/30/18 08:40 Alfuzosin HCl (Uroxatral) 10 mg PO QPM BETO Stop: 11/30/18 20:59 Last Admin: 10/31/18 20:11 Dose: 10 mg Documented by: Bisacodyl (Dulcolax) 10 mg MN Q24H PRN PRN Reason: Constipation Stop: 11/30/18 10:28 Doxazosin Mesylate (Cardura) 1 mg PO QPM BETO Stop: 11/30/18 20:59 Last Admin: 10/31/18 20:11 Dose: 1 mg Documented by: Heparin Sodium (Porcine) (Heparin Sodium (Porcine)) 5,000 units SQ Q8 BETO Stop: 11/30/18 13:59 Last Admin: 11/01/18 05:47 Dose: 5,000 units Documented by: Multivitamins/Minerals (Caltrate Plus) 1 tab PO BID [facility] Stop: 11/30/18 08:59 Last Admin: 10/31/18 20:11 Dose: 1 tab Documented by: Polyethylene Glycol (Miralax Powder Packet) 17 gm PO DAILY PRN PRN Reason: Constipation Stop: 11/30/18 10:28 Simvastatin (Zocor) 20 mg PO HS [facility] Stop: 11/30/18 20:59 Last Admin: 10/31/18 20:11 Dose: 20 mg Documented by: Sotalol HCl (Betapace) 120 mg PO BID [facility] Stop: 11/30/18 08:59 Last Admin: 10/31/18 20:11 Dose: 120 mg Documented by: Timolol Maleate (Timoptic 0.5% Oph) 1 drops OP QAM [facility] Stop: 11/30/18 08:59 Last Admin: 10/31/18 09:35 Dose: 1 drops Documented by:
[2018-11-01] MEDS: SOTALOL HCL 80 MG TAB PO SCH (08:28)
[2018-11-01] MEDS: CALCIUM 600MG + VIT D 400 IU TAB PO SCH (08:28)
[2018-11-01] MEDS: TIMOLOL MALEATE 0.5% OP SOLN 5 ML BTL OP SCH (08:28)
[2018-11-01 08:38] LABS: Appearance Urine Clear (Clear); Bacteria Urine Automated Negative (Negative); Bilirubin Urine Negative (Negative); Blood Urine 3+ (Negative); Color Urine Dark Yellow; Epithelial Cell Urine Auto 0-5 /lpf (0-5); Glucose Urine UA Negative (Negative); Ketones Urine Negative (Negative); Leukocyte Esterase Urine Negative (Negative); Nitrite Urine Negative (Negative); Protein Urine Negative (Negative); Specific Gravity Urine 1.021 (1.000-1.030); Urobilinogen Urine Negative (Negative)
--- NOTE | 2018-11-01 10:08 | Urology Progress Note ---
Date of Service November 01, 2018 Assessment & Plan (1) EVELYNE (acute kidney injury): (2) Hematuria: (3) Acute urinary retention: Pt states he feels "great". VSS, afebrile Cr dramatically improved with maximal drainage. Tolerating catheter well. UC&S obtained today. Will treat if positive, no need for empiric abx coverage at this time. Draining clear yellow, Denies need for hand irrigation overnight. Okay to d/c home from perspective with sheikh catheter maintained. Continue alfuzosin. Outpatient voiding trial arranged in our office at [address] [place] [id number] at @ 10:40 am on , 11/09/18. Please instruct pt to call our office if unable to make this appointment time. Care discussed with Dr. Ibarra, agrees with plan of care. Subjective 83yo s/p brachytherapy on 10/28 with gross hematuria and clot retention. Pt states he had an uneventful night, feels "great". Able to sleep comfortably. Denies suprapubic or flank pain. Denies bladder spasms or difficulty tolerating catheter. Denies fever/chills/n/v. Review of Systems All systems reviewed & are unremarkable except as noted in HPI & below Physical Exam Vital Signs (Past 24 Hours): Last Vital Signs Temp 37.1 C 11/01/18 08:10 Pulse 68 11/01/18 08:10 Resp 16 11/01/18 08:10 BP 108/70 11/01/18 08:10 Pulse Ox 91 11/01/18 08:10 Physical Exam: A&Ox3 RRR Abd large, soft. nontender on palpation No suprapubic tenderness on palpation. sheikh intact: draining clear yellow. no sediment, no clots. Results & Data Laboratory Results Laboratory Results - last 48 hr 10/31/18 10/31/18 10/31/18 05:00 05:00 05:00 WBC 10.85 H RBC 4.77 Hgb 15.1 Hct 43.7 MCV 91.6 MCH 31.7 MCHC 34.6 RDW Std Deviation 46.5 H RDW Coeff of Eliza 13.9 Plt Count 150 MPV 11.1 H Immature Gran % (Auto) 0.2 Neut % (Auto) 75.5 Lymph % (Auto) 11.9 Republic % (Auto) 12.3 Eos % (Auto) 0.1 Baso % (Auto) 0.0 Immature Gran # (Auto) 0.02 Neut # (Auto) 8.20 H Lymph # (Auto) 1.29 Republic # (Auto) 1.33 H Eos # (Auto) 0.01 Baso # (Auto) 0.00 APTT PTT Ratio Sodium 135 L Potassium 3.8 Chloride 97 L Carbon Dioxide 29 Anion Gap 9.0 BUN 33 H Creatinine 2.11 H Est Cr Clr Drug Dosing 33.0 Est GFR ( Amer) 33.0 Est GFR (Non-Af Amer) 28.5 BUN/Creatinine Ratio 15.6 Glucose 137 H Calcium 9.0 Total Bilirubin 0.8 AST 18 ALT 27 Alkaline Phosphatase 53 Total Protein 7.3 Albumin 3.4 Globulin 3.9 Albumin/Globulin Ratio 0.9 Lipase 41 L Urine Color [place] Urine Appearance Clear Urine pH Ur Specific Marydel 1.013 Urine Protein Negative Urine Glucose (UA) Urine Ketones Urine Blood Urine Nitrite Urine Bilirubin Urine Urobilinogen Ur Leukocyte Esterase Urine WBC (Auto) Urine RBC (Auto) U Hyaline Cast (Auto) U Epithel Cells (Auto) Urine Bacteria (Auto) Urine RBC >30 H Urine WBC 0-5 Ur Epithelial Cells 0-5 Urine Bacteria Negative 10/31/18 11/01/18 11/01/18 08:00 06:43 06:43 WBC 8.21 RBC 4.30 L Hgb 13.6 L Hct 39.9 L MCV 92.8 MCH 31.6 MCHC 34.1 RDW Std Deviation 48.0 H RDW Coeff of Eliza 14.2 Plt Count 129 L MPV 11.3 H Immature Gran % (Auto) Neut % (Auto) Lymph % (Auto) Republic % (Auto) Eos % (Auto) Baso % (Auto) Immature Gran # (Auto) Neut # (Auto) Lymph # (Auto) Republic # (Auto) Eos # (Auto) Baso # (Auto) APTT 24.5 PTT Ratio 0.9 Sodium 137 Potassium 3.5 Chloride 100 Carbon Dioxide 32 Anion Gap 5.0 BUN 36 H Creatinine 1.23 D Est Cr Clr Drug Dosing 55.4 Est GFR ( Amer) 63.4 Est GFR (Non-Af Amer) 54.7 BUN/Creatinine Ratio 29.1 H Glucose 101 H Calcium 8.6 Total Bilirubin AST ALT Alkaline Phosphatase Total Protein Albumin Globulin Albumin/Globulin Ratio Lipase Urine Color Urine Appearance Urine pH Ur Specific Marydel Urine Protein Urine Glucose (UA) Urine Ketones Urine Blood Urine Nitrite Urine Bilirubin Urine Urobilinogen Ur Leukocyte Esterase Urine WBC (Auto) Urine RBC (Auto) U Hyaline Cast (Auto) U Epithel Cells (Auto) Urine Bacteria (Auto) Urine RBC Urine WBC Ur Epithelial Cells Urine Bacteria 11/01/18 08:22 WBC RBC Hgb Hct MCV MCH MCHC RDW Std Deviation RDW Coeff of Eliza Plt Count MPV Immature Gran % (Auto) Neut % (Auto) Lymph % (Auto) Republic % (Auto) Eos % (Auto) Baso % (Auto) Immature Gran # (Auto) Neut # (Auto) Lymph # (Auto) Republic # (Auto) Eos # (Auto) Baso # (Auto) APTT PTT Ratio Sodium Potassium Chloride Carbon Dioxide Anion Gap BUN Creatinine Est Cr Clr Drug Dosing Est GFR ( Amer) Est GFR (Non-Af Amer) BUN/Creatinine Ratio Glucose Calcium Total Bilirubin AST ALT Alkaline Phosphatase Total Protein Albumin Globulin Albumin/Globulin Ratio Lipase Urine Color Dark Yellow Urine Appearance Clear Urine pH 5.0 Ur Specific Marydel 1.021 Urine Protein Negative Urine Glucose (UA) Negative Urine Ketones Negative Urine Blood 3+ H Urine Nitrite Negative Urine Bilirubin Negative Urine Urobilinogen Negative Ur Leukocyte Esterase Negative Urine WBC (Auto) 1-5 Urine RBC (Auto) 10-30 H U Hyaline Cast (Auto) 1-5 U Epithel Cells (Auto) 0-5 Urine Bacteria (Auto) Negative Urine RBC Urine WBC Ur Epithelial Cells Urine Bacteria
[2018-11-01 11:49] VITALS: PULSE 66; TEMP 99; O2SAT 93
--- NOTE | 2018-11-01 12:38 | Discharge Summary ---
Date of Service November 01, 2018 Admission HPI Per Admitting Provider 83-year-old man with prostate cancer status post brachii therapy with seed placement on 10/28 presents to the emergency department with reports of gross hematuria and abdominal discomfort for 2 days. Review of systems also reveals some constipation. He denies any fevers, chills, chest pain, shortness of breath, headache, or other symptoms at this time. He reports that Thursday night he developed discomfort and the need to frequently urinate small amounts every 10 minutes. He is abdominal pain increased throughout yesterday and became associated with blood in the urine, prompting ER visit. In the ER he was found to be retaining >600cc of urine and a Barnard was placed with resolution of discomfort. Barnard is draining pink-tinged urine. Admission Exam Per Admitting Provider Temp 36.8 C 10/31/18 08:43 Pulse 58 L 10/31/18 08:43 Resp 18 10/31/18 08:43 BP 138/75 10/31/18 08:43 Pulse Ox 95 10/31/18 08:19 CONSTITUTIONAL: WNWD, vitals as above, generally well-appearing EYES: normal conjuctivae, no scleral icterus RESPIRATORY: clear to auscultation bilaterally, no crackles, rales or wheezes, normal respiratory effort CARDIOVASCULAR: regular rate and rhythm, S1 and 2 heard without murmurs, gallops or rubs, no JVD, no peripheral edema GASTROINTESTINAL: soft, nontender, nondistended, no CVA tenderness MUSCULOSKELETAL: strength 5/5 throughout, head is normocephalic and atraumatic, no focal deficits. SKIN: warm and dry NEUROLOGIC: CN 2-12 grossly intact, normal cognition, normal speech, no tremor PSYCHIATRIC: alert cooperative and oriented to person, place and time. Principal Diagnosis EVELYNE Acute urinary retention Gross hematuria-resolved Prostate cancer with branchytherapy PAF-not on anticoagulation T2DM, diet-controlled Constipation Discharge Data Allergies Allergy/AdvReac Type Severity Reaction Status Date / Time No Known Allergies Allergy Verified 10/31/18 04:54 Consultations 10/31/18 07:38 ED Decision to Admit Stat 10/31/18 08:41 Consult Case Management - Discharge Planning Routine Consult Urology Routine Ordered Studies 10/31/18 05:45 CT abd pelvis wo con Urgent Hospital Course (1) Acute urinary retention: (2) Hematuria: (3) Prostate cancer: (4) PAF (paroxysmal atrial fibrillation): (5) T2DM (type 2 diabetes mellitus): (6) Constipation: (7) EVELYNE (acute kidney injury): 83-year-old female with prostate cancer who is status post brachytherapy seed placement on 10/28 presented to the emergency department with acute urinary retention and lower abdominal pain for 2 days. He was found to be retaining greater than 600 cc of urine and a Barnard was placed successfully with subsequent resolution of abdominal pain. Urology was consulted and feels urinary retention is secondary to recent procedure with underlying BPH with lower urinary tract symptoms. He is already on alfuzosin and doxazosin, and should continue these. Gross hematuria was noted and resolved with Barnard placement after approximately 1 day. Lab work also revealed an AK I secondary to obstruction which improved with Barnard placement. Baseline creatinine noted to be approximately 0.8 with a normal creatinine clearance. On admission BUN was 33 creatinine 2.11 with a GFR of 28. This improved on discharge to BUN 36, creatinine 1.23 with a GFR 55. He was felt stable for discharge and no infection was seen in his urine, therefore antibiotics were not given. Physical exam on discharge was unremarkable. Abdominal pain had completely resolved. He was tolerating p.o., mentating and a relating at baseline and was sent home with close primary care follow-up and close urology follow-up. He was discharged with Barnard in place. Total Time Total Time Spent Total Time Spent (In Minutes): 60 Total Time Includes: Examination of the Patient, Discharge Planning, Medication Reconciliation, Communication With Other Providers and Other (called for follow up appointment) Discharge Plan Discharge Items Patient Disposition: Home - Self-Care Reason For Visit: EVELYNE, GROSS HEMATURIA Discharge Diagnosis: EVELYNE Acute urinary retention Gross hematuria-resolved Prostate cancer with branchytherapy PAF-not on anticoagulation T2DM, diet-controlled Constipation Condition: Good Discharge Goals: Improve disease control and Therapeutic intervention Activity: Resume your previous activity Non-emergency contact: Primary Care Provider and Urologist Call non-emergency contact if: you have any medication questions, your symptoms worsen, your pain is not controlled, your pain is worsening, your pain is unusual for you, your pain is concerning for you and you have a fever Follow-up/Referrals: Darci Ibarra MD [Family Provider] - (Barnard catheter voiding trial/removal on , 11/09/18 at 10:40AM. If he needs to change appiontment date or time, please call our office.) Shanelle Jack [Primary Care Provider] - Diet: Carb Consistent or DM2 and Heart Healthy Addtl Provider Instructions: Please take all medications as instructed on discharge list below. Hold you Atacand for one more day, then resume. Please avoid Motrin or Ibuprofen products for the next week as these can put additional pressure on your kidneys while they recover. It is recommended that you follow-up with your primary care physician within one week of discharge. It was a pleasure taking care of you! Please call if you have any questions or problems. You can reach a [facility] hospitalist on duty at [facility] 24 hours a day by calling [phone]. Take care of yourself. Neeru Mathias, DO [facility] Hospitalist Prescriptions: Continued Lupron Depot (4 month) 30 mg Syringe Kit 1 dose IM UD RF: 0 multivitamin Tablet 1 tab PO QAM RF: 0 doxazosin [Cardura] 1 mg Tablet 1 mg PO QPM RF: 0 aspirin [Aspir-81] 81 mg Tablet,Delayed Release (Dr/Ec) 81 mg PO QPM RF: 0 sotalol 120 mg Tablet 120 mg PO BID RF: 0 candesartan-hydrochlorothiazid [Atacand HCT] 16-12.5 mg Tablet 1 tab PO QAM RF: 0 simvastatin 20 mg Tablet 20 mg PO HS RF: 0 timolol maleate (PF) 0.5 % Dropperette 1 drp OPHTHALMIC (EYE) QAM RF: 0 alfuzosin 10 mg Tablet Extended Release 24 Hr 10 mg PO QPM RF: 0 calcium carbonate-vitamin D3 [Calcium 500 + D] 500 mg(1,250mg) -200 unit Tablet 1 tab PO BID RF: 0 coQ10 (ubiquinol) 200 mg Capsule 200 mg PO QPM RF: 0 omega 4-hrg-zhl-fish oil [Fish Oil] 1,000 mg (120 mg-180 mg) Capsule 1 cap PO BID RF: 0 Stand-Alone Forms: My [facility]/Other Patient Handouts: Catheter Indwelling Urinary Dc, Leg Bag Care Dc Discharge Orders: Discharge Order (Routine); Ordered 11/01/18 Ordered By: Neeru Mathias Admission Data Admit Date/Time: 10/31/18 08:04 Attending Provider: Neeru Mathias Admit Provider: Neeru Mathias Primary Care Provider: Shanelle Jack Other Providers: Sandeep Collazo ; [place] Tyler II Service: Medical
[2018-11-01 13:07] VITALS: BP 93/60
== END 2018-11-01 13:34 | disposition home or self-care (01) | DRG 699 ==
LOC: ED 04:37 → 4W 08:04